=== PATIENT | female | born 1945 | race Caucasian/White ===

== ENCOUNTER → 2017-08-23 | Outpatient (CLI) | payer BC ==
[~2017-08-23] MED LIST: ALPR0.25 PO; B-COTAB18 PO; CALCTAB7 PO; ESTR1CRE PV; MULTTAB PO; OMEGCAP2; OMEP20CA59 PO; VENL75TA4 PO
--- NOTE | 2017-08-24 14:42 | MAMMOGRAPHY REPORT ---
BILATERAL DIGITAL SCREENING MAMMOGRAM TOMOSYNTHESIS WITH CAD: 08/23/2017 CLINICAL HISTORY: Routine screening. Patient has no complaints. TECHNIQUE: Breast tomosynthesis in addition to standard 2D mammography was performed. Current study was also evaluated with a Computer Aided Detection (CAD) system. COMPARISON: Comparison is made to exams dated: 06/06/2016 mammogram, 05/04/2015 mammogram, 05/01/2014 mammogram, 04/30/2013 mammogram, 04/23/2012 mammogram, and 04/05/2011 mammogram - [facility]. BREAST COMPOSITION: There are scattered areas of fibroglandular density in both breasts. FINDINGS: There are linear and curvilinear benign-appearing calcifications throughout the inferior ri ght breast, stable compared to prior exams. A stable rudy-shaped biopsy marker clip in the 6:00 poste rior right breast. No new suspicious mass, architectural distortion or cluster of microcalcification s is seen. IMPRESSION: ACR BI-RADS CATEGORY 1: NEGATIVE There is no mammographic evidence of malignancy. A 1 year screening mammogram is recommended. The pa tient will receive written notification of the results. Approximately 10% of breast cancers are not detected with mammography. A negative mammographic report should not delay biopsy if a clinically suggestive mass is present. Katherine Wilson M.D. ay/:08/23/2017 18:34:44 Agronomy Supervisor: Marilyn Cormier, [facility] letter sent: Normal 1/2 BI-RADS Code: ACR BI-RADS Category 1: Negative
== END | disposition home or self-care (01) ==
LOC: C.MAMM 10:44
PROVIDERS: ATTEND Family Medicine
DX: Z12.31 Encounter for screening mammogram for malignant neoplasm of breast (principal)